=== PATIENT | male | born 1970 | race African-American/Black ===

== ENCOUNTER 2018-03-22 08:04 | Emergency (ER) | payer MEDICARE, OTHER ==
[~2018-03-22] VITALS: Ht 185.4 cm; Wt 77.6 kg
[2018-03-22] MEDS: PHENYLEPHRINE HCL 1% 10 MG/ML VIAL IM PRN ×2 (09:30→10:42)
[2018-03-22 12:05] VITALS: BP 136/70
== END 2018-03-22 12:11 | disposition home or self-care (01) ==
LOC: FSED 08:04
DX: N48.33 Priapism, drug-induced (principal); G82.20 Paraplegia, unspecified; N52.1 Erectile dysfunction due to diseases classified elsewhere
CPT/HCPCS: 54235; 99282; J2370

== ENCOUNTER → 2020-10-23 | Outpatient (CLI) | payer MEDICARE, OTHER | LOC: MRI 13:43 | PROVIDERS: ATTEND Family Medicine | DX: M79.604 Pain in right leg (principal) ==